=== PATIENT | female | born 1980 | race Caucasian/White ===

== ENCOUNTER 2021-12-19 07:35 | Emergency (ER) | payer MEDICAID ==
[~2021-12-19] VITALS: Ht 162.6 cm; Wt 100.0 kg
[2021-12-19] MEDS ORDERED: IBUPROFEN 600 MG TABLET PO ONE (08:15)
[2021-12-19 08:23] LABS: BASOPHILS % (AUTO) 0.7 % (0.0-2.0); EOSINOPHILS % (AUTO) 1.4 % (1.0-6.0); HEMATOCRIT 35.1 % (36-46); HEMOGLOBIN 11.3 g/dL (12.0-16.0); LYMPHOCYTES # (AUTO) 1.2 K/uL (1.0-4.8); LYMPHOCYTES % (AUTO) 21.4 % (22.0-44.0); MEAN CORPUSCULAR HEMOGLOBIN 23.4 pg (26.0-34.0); MEAN CORPUSCULAR HGB CONC 32.2 G/dL (31.0-37.0); MEAN CORPUSCULAR VOLUME 73 fL (80-100); MONOCYTES # (AUTO) 0.4 K/uL (0.1-1.0); MONOCYTES % (AUTO) 7.3 % (2.0-9.0); NEUTROPHILS # (AUTO) 3.8 K/uL (1.8-7.7); NEUTROPHILS % (AUTO) 69.2 % (40.0-70.0); PLATELET COUNT (AUTO) 281 K/uL (150-450); RED BLOOD CELL COUNT(AUTO) 4.83 MIL/uL (4.00-5.20)
[2021-12-19 08:34] LABS: ANION GAP 9 mmol/L (8-16); CALCIUM, TOTAL 8.6 mg/dL (8.8-10.5); CARBON DIOXIDE 25 mmol/L (22-29); CHLORIDE 104 mmol/L (98-107); CREATININE 0.69 mg/dL (0.60-1.30); GLOMERULAR FILTR. RATE CALC > 60 mL/min (>60); GLUCOSE,RANDOM 106 mg/dL (70-110); POTASSIUM 3.8 mmol/L (3.5-5.1); SODIUM SERUM 138 mmol/L (136-145); UREA NITROGEN, BLOOD 12 mg/dL (7-18)
[2021-12-19 09:00] VITALS: BP 166/92
[2021-12-19] MEDS ORDERED: AMLO-258 PO (09:26)
== END 2021-12-19 10:09 | disposition home or self-care (01) ==
LOC: EMS 07:35
DX: R07.89 Other chest pain (principal); R51.9 Headache, unspecified; I10 Essential (primary) hypertension; H11.31 Conjunctival hemorrhage, right eye
CPT/HCPCS: 71045; 80048; 84484; 85025; 93005; 99285; 36415-L1; 36415-TC

== ENCOUNTER 2023-03-31 22:16 | Emergency (ER) | payer MEDICAID ==
[~2023-03-31] VITALS: Ht 154.9 cm; Wt 90.0 kg
[~2023-03-31 22:16] MED LIST: AMLO-258 PO
[2023-03-31 22:20] VITALS: TEMP 99
[2023-03-31] MEDS ORDERED: HYDR25TA PO (22:26)
[2023-03-31] MEDS ORDERED: KETOROLAC TROMETHAMINE 30 MG/ML VIAL IVP ONE (23:00)
[2023-03-31] MEDS ORDERED: PB/HYOSCY/ATR/SCOP/LIDO/MAALOX 55 ML BOTTLE PO ONE (23:00)
[2023-03-31] MEDS ORDERED: DiphenhydrAMINE HCL 25 MG CAPSULE PO ONE (23:00)
[2023-03-31 23:25] LABS: BASOPHILS % (AUTO) 0.5 % (0.0-2.0); EOSINOPHILS % (AUTO) 1.1 % (1.0-6.0); HEMATOCRIT 36.6 % (36-46); HEMOGLOBIN 12.1 g/dL (12.0-16.0); LYMPHOCYTES # (AUTO) 1.5 K/uL (1.0-4.8); LYMPHOCYTES % (AUTO) 24.5 % (22.0-44.0); MEAN CORPUSCULAR HGB CONC 33.1 G/dL (31.0-37.0); MEAN CORPUSCULAR VOLUME 79 fL (80-100); MONOCYTES # (AUTO) 0.5 K/uL (0.1-1.0); MONOCYTES % (AUTO) 7.4 % (2.0-9.0); NEUTROPHILS % (AUTO) 66.5 % (40.0-70.0); PLATELET COUNT (AUTO) 293 K/uL (150-450); RED BLOOD CELL COUNT(AUTO) 4.65 MIL/uL (4.00-5.20)
[2023-03-31 23:36] LABS: ALANINE AMINOTRANSFERASE 15 U/L (12-78); ALBUMIN 3.5 g/dL (3.4-5.0); ALKALINE PHOSPHATASE 61 U/L (46-116); ANION GAP 7 mmol/L (8-16); ASPARTATE AMINOTRANSFERASE 15 U/L (15-37); BILIRUBIN,TOTAL 0.5 mg/dL (0.1-1.0); CALCIUM, TOTAL 8.7 mg/dL (8.8-10.5); CARBON DIOXIDE 30 mmol/L (22-29); CHLORIDE 94 mmol/L (98-107); CREATINE KINASE, TOTAL ONLY 64 U/L (26-192); CREATININE 0.71 mg/dL (0.60-1.30); GLOMERULAR FILTR. RATE CALC > 60 mL/min (>60); GLUCOSE,RANDOM 106 mg/dL (70-110); LIPASE 41 U/L (16-77); SODIUM SERUM 131 mmol/L (136-145); TOTAL PROTEIN, SERUM 7.2 g/dL (6.4-8.2)
[2023-03-31 23:37] LABS: B-TYPE NATRIURETIC PEPTIDE 25 pg/mL (0-100)
[2023-03-31 23:39] LABS: POTASSIUM 2.8 mmol/L (3.5-5.1)
[2023-03-31] MEDS ORDERED: KETOROLAC TROMETHAMINE 30 MG/ML VIAL IM ONE (23:45)
[2023-04-01] MEDS ORDERED: POTASSIUM CHLORIDE 20 MEQ ER TABLET PO ONE
[2023-04-01] MEDS ORDERED: POTA-364 PO (00:59)
[2023-04-01 02:23] VITALS: BP 130/80; PULSE 72; RESP 16
== END 2023-04-01 02:26 | disposition home or self-care (01) ==
LOC: EMS 22:17
DX: E87.6 Hypokalemia (principal); I10 Essential (primary) hypertension
CPT/HCPCS: 99285; 71045; 80053; 82550; 83690; 83880; 84484; 85025; 93005; 96372; J1885